=== PATIENT | female | born 1975 | race Caucasian/White ===

== ENCOUNTER → 2016-09-17 | Outpatient (CLI) | payer MEDICAID ==
[~2016-09-17] MED LIST: BACTRIM DS 8001 TAB PO; BACTROBAN2% TP; HYDROCODONE-APA1 TA1 PO; KEFLEX 500MG.500 MG PO; PHENERGAN 12.12.5 M1 PO; PREDNISONE 20MG20 MG PO; ULTRAM 50 MG TA50 MG PO; VISTARIL25 MG PO
--- NOTE | 2016-09-17 11:41 | CARDIOVASCULAR REPORT ---
"Venous Exam Indications: 729.5 Pain in limb. IMPRESSIONS 1. There is no evidence of significant Reflux. 2. No evidence of deep or superficial vein thrombosis involving the left lower extremity History: Risk factors: Recent trauma. Left lower extremity venous duplex evaluation. Doppler flow study including spectral analysis, color and gonzalez scale imaging. Location: Vascular laboratory. Patient status: Outpatient. Tables: Venous flow and imaging: + +-------+ + |Location |Overall|Flow properties | + +-------+ + |Left common femoral |Patent |Normal phasicity; spontaneous; | | | |normal augmentation; compressible | + +-------+ + |Left saphenofemoral junction|Patent |Compressible | + +-------+ + |Left profunda femoral |Patent |Compressible | + +-------+ + |Left femoral |Patent |Normal phasicity; spontaneous; | | | |normal augmentation; compressible | + +-------+ + |Left greater saphenous |Patent |Normal phasicity; spontaneous; | | | |normal augmentation; compressible | + +-------+ + |Left popliteal |Patent |Normal phasicity; spontaneous; | | | |normal augmentation; compressible | + +-------+ + |Left posterior tibial |Patent |Compressible | + +-------+ + |Left peroneal |Patent |Compressible | + +-------+ + |Left gastrocnemius |Patent |Compressible | + +-------+ + |Left soleal |Patent |Compressible | + +-------+ + (Report amended ) Electronically signed by: Alexis Barajas [id number]"
== END ==
LOC: RT 11:08
DX: M79.89 Other specified soft tissue disorders (principal); L03.116 Cellulitis of left lower limb; S89.92XA Unspecified injury of left lower leg, initial encounter